=== PATIENT | male | born 1970 | race African-American/Black ===

== ENCOUNTER 2022-09-04 11:59 | Emergency (ER) | payer MEDICAID, OTHER ==
[~2022-09-04] VITALS: Ht 170.2 cm; Wt 73.0 kg
[2022-09-04 12:14] VITALS: BP 137/90
[2022-09-04] MEDS ORDERED: SODIUM CHLORIDE 0.9% 1,000 ML IVB ONE (12:15)
[2022-09-04] MEDS ORDERED: PROCHLORPERAZINE EDISYLATE 5 MG/ML 2ML VIAL IV ONE (12:15)
[2022-09-04] MEDS ORDERED: PANTOPRAZOLE 40 MG/10 ML VIAL INJ IV ONE (12:15)
[2022-09-04 13:18] LABS: Albumin 4.1 g/dL (3.4-5.0); Amylase 48 U/L (25-115); Anion Gap 9 (5-15); Blood Urea Nitrogen 13 mg/dL (7-18); Calcium 8.7 mg/dL (8.5-10.1); Carbon Dioxide 23 mmol/L (21-32); Chloride 104 mmol/L (98-107); Glucose 111 mg/dL (74-106); Lipase 84 U/L (73-393); Potassium 3.5 mmol/L (3.5-5.1); Sodium 136 mmol/L (136-145)
[2022-09-04 13:22] LABS: Alanine Aminotransferase 26 U/L (16-61); Alkaline Phosphatase 77 U/L (45-117); Aspartate Aminotransferase 28 U/L (15-37); BUN/Creatinine Ratio 11.4; Blood Alcohol < 3.0 mg/dL (0-5); GFR African American 87 mL/min; GFR Non-African American 72 mL/min; Total Protein 8.1 g/dL (6.4-8.2)
[2022-09-04 14:14] LABS: Urine Bacteria FEW /hpf (None Seen); Urine Blood Negative /uL (Negative); Urine Mucus FEW (None Seen); Urine Specific Gravity 1.029 (1.001-1.035); Urine WBC 3 /hpf (0 - 3)
[2022-09-04 14:21] LABS: Amphetamine Screen, Urine NEGATIVE (NEGATIVE); Barbiturate Scree,Urine NEGATIVE (NEGATIVE); Benzodiazephine Screen, Urine NEGATIVE (NEGATIVE); Cannabinoid Screen, Urine POSITIVE (NEGATIVE); Cocaine Screen, Urine POSITIVE (NEGATIVE); Opiate Scree,Urine NEGATIVE (NEGATIVE); Phencyclidine Screen, Urine NEGATIVE (NEGATIVE)
[2022-09-04] MEDS ORDERED: ONDA-144 PO (14:38)
[2022-09-04] MEDS ORDERED: PANT40TA2 PO (14:38)
== END 2022-09-04 14:49 | disposition home or self-care (01) ==
LOC: ER 11:59
DX: F12.188 Cannabis abuse with other cannabis-induced disorder (principal); F41.9 Anxiety disorder, unspecified; F17.210 Nicotine dependence, cigarettes, uncomplicated; F12.10 Cannabis abuse, uncomplicated; R94.31 Abnormal electrocardiogram [ECG] [EKG]
CPT/HCPCS: 36415; 80053; 80307; 80320; 81001; 82150; 83690; 93005; 96361; 96374; 96375; 99284; C9113; J0780; J7030